=== PATIENT | male | born 1980 | race Caucasian/White ===

== ENCOUNTER 2019-11-03 14:49 | Emergency (ER) | payer OTHER ==
[~2019-11-03] VITALS: Ht 172.7 cm; Wt 86.2 kg
[~2019-11-03 14:49] MED LIST: NORCO 7.5-3251 EACH PO; ONDANSETRON ODT8 MG PO; ZIPSOR25 MG PO
--- OUTSIDE RECORDS SUMMARY | 2019-11-03 14:52 | XMS ---
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 Denisha has no Care Guidelines for this patient. Cony VISIT COUNT (12 MO.) 1 AICHA Andrea TOTAL 1 NOTE: Visits indicate total known visits. ED/C VISIT TRACKING (12 MO.) 11/03/2019 14:49 [facility] [place] [place] TYPE: Emergency COMPLAINT: - ABD PAIN INPATIENT VISIT TRACKING (12 MO.) No inpatient visits to display in this time frame [id number]
[2019-11-03] MEDS ORDERED: GABAPENTIN300 MG PO (15:02)
[2019-11-03] MEDS ORDERED: NORCO 5-325 TA1 EACH PO (17:37)
[2019-11-03] MEDS ORDERED: FLOMAX0.4 MG PO (17:37)
== END 2019-11-03 17:51 | disposition home or self-care (01) ==
LOC: ED 14:49
DX: N13.2 Hydronephrosis with renal and ureteral calculous obstruction (principal); I10 Essential (primary) hypertension; Z87.442 Personal history of urinary calculi; Z79.899 Other long term (current) drug therapy
CPT/HCPCS: 74176; 80053; 81001; 85025; 96374; 96375; 99284-25; J1885; J2270; J2405; J7030

== ENCOUNTER 2019-11-04 15:46 | Emergency (ER) | payer OTHER ==
[~2019-11-04] VITALS: Ht 172.7 cm; Wt 86.2 kg
[~2019-11-04 15:46] MED LIST changes: +FLOMAX0.4 MG PO; +GABAPENTIN300 MG PO; +NORCO 5-325 TA1 EACH PO
--- OUTSIDE RECORDS SUMMARY | 2019-11-04 15:50 | XMS ---
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 [place] VISIT COUNT (12 MO.) 2 [facility] TOTAL 2 NOTE: Visits indicate total known visits. ED/UCC VISIT TRACKING (12 MO.) 11/04/2019 15:46 [facility]IC[facility] [place] TYPE: Emergency COMPLAINT: - ABD PAIN 11/03/2019 14:49 AICHA [place] TYPE: Emergency COMPLAINT: - ABD PAIN INPATIENT VISIT TRACKING (12 MO.) No inpatient visits to display in this time frame [id number]
== END 2019-11-04 18:00 | disposition home or self-care (01) ==
LOC: ED 15:46
DX: N20.2 Calculus of kidney with calculus of ureter (principal); I10 Essential (primary) hypertension; Z79.899 Other long term (current) drug therapy
CPT/HCPCS: 81001; 96372; 99284; J1885

== ENCOUNTER 2021-01-25 15:44 | Emergency (ER) | payer OTHER ==
[~2021-01-25] VITALS: Ht 172.7 cm; Wt 86.2 kg
--- OUTSIDE RECORDS SUMMARY | 2021-01-25 15:46 | XMS ---
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 11/04/2019-Current PHONE: [phone] Denisha has no Care Guidelines for this patient. EIsac VISIT COUNT (12 MO.) 1 AICHA Andrea TOTAL 1 NOTE: Visits indicate total known visits. ED/UCC VISIT TRACKING (12 MO.) 01/25/2021 15:45 AICHA [place] TYPE: Emergency COMPLAINT: - R HAND LACERATION INPATIENT VISIT TRACKING (12 MO.) No inpatient visits to display in this time frame [id number]
== END 2021-01-25 19:05 | disposition short-term general hospital (02) ==
LOC: ED 15:44
PROC: 0HQDXZZ Repair Right Lower Arm Skin, External Approach (ICD-10-PCS; principal; 2021-01-25)
DX: S61.511A Laceration without foreign body of right wrist, initial encounter (principal); S55.101A Unspecified injury of radial artery at forearm level, right arm, initial encounter; I10 Essential (primary) hypertension; Z87.442 Personal history of urinary calculi; W31.2XXA Contact with powered woodworking and forming machines, initial encounter; Z23 Encounter for immunization
CPT/HCPCS: 12002; 73110; 90471; 90715; 99284-25; C9803; J0690; J2405; U0003

== ENCOUNTER 2022-10-31 19:12 | Emergency (ER) | payer OTHER ==
[~2022-10-31] VITALS: Ht 172.7 cm; Wt 94.3 kg
--- OUTSIDE RECORDS SUMMARY | 2022-10-31 19:14 | XMS ---
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 Cony VISIT COUNT (12 MO.) Elizabet Andrea TOTAL 1 NOTE: Visits indicate total known visits. ED/UCC VISIT TRACKING (12 MO.) 10/31/2022 19:13 [facility] [place] TYPE: Emergency COMPLAINT: - POSS KIDNEY STONE INPATIENT VISIT TRACKING (12 MO.) No inpatient visits to display in this time frame [id number]
[2022-10-31] MEDS ORDERED: LISINOPRIL10 MG PO (19:35)
[2022-10-31] MEDS ORDERED: KETOROLAC TROME10 MG PO (20:29)
[2022-10-31] MEDS ORDERED: ONDANSETRON ODT8 MG PO (20:29)
[2022-10-31] MEDS ORDERED: PERCOCET 5-3251 EACH PO (20:29)
[2022-10-31] MEDS ORDERED: FLOMAX0.4 MG PO (20:29)
[2022-10-31 21:03] VITALS: BP 107/68
== END 2022-10-31 21:05 | disposition home or self-care (01) ==
LOC: ED 19:12
DX: N20.1 Calculus of ureter (principal); I10 Essential (primary) hypertension; Z79.899 Other long term (current) drug therapy
CPT/HCPCS: 36415; 74176; 80053; 81001; 85025; 96374; 96375; 99284 25; A9270; J1170; J1885; J2405; J7030